=== PATIENT | female | born 1995 | race African-American/Black ===

== ENCOUNTER 2018-03-12 11:08 | Emergency (ER) | payer MEDICAID ==
[~2018-03-12] VITALS: Ht 170.2 cm; Wt 125.2 kg
[~2018-03-12 11:08] MED LIST: ACYCLOVIR 400400 MG PO; EXCEDRIN CAPLE1 EACH; IBUPROFEN 800800 MG PO; MACROBID 100 M100 M1 PO; TRINATE TABLET1 TAB PO
[2018-03-12 11:30] LABS: URINE BILIRUBIN NEGATIVE (Negative); URINE BLOOD NEGATIVE (Negative); URINE CLARITY CLEAR; URINE COLOR YELLOW; URINE GLUCOSE-RANDOM* NEGATIVE (Negative); URINE KETONES NEGATIVE (Negative); URINE NITRITE-REFLEX NEGATIVE (Negative); URINE PROTEIN (DIPSTICK) NEGATIVE (Negative); URINE UROBILINOGEN 0.2 E.U./dl (0.2-1.0)
[2018-03-12 11:31] LABS: URINE LEUKOCYTES-REFLEX 1+ (Negative)
[2018-03-12 11:41] LABS: BACTERIA-REFLEX 1-9 Few /HPF (None Seen); CASTS None Seen /LPF (None Seen); SQUAMOUS >10 Many /LPF (0-3); URINE RBC None Seen /HPF (0-2); URINE WBC-REFLEX 0-5 Rare /HPF (0-5)
[2018-03-12 11:42] LABS: AMORPHOUS URATES Few /LPF (None Seen)
[2018-03-12 11:51] LABS: HEMATOCRIT 33.8 % (37.0-47.0); HEMOGLOBIN 11.4 gm/dL (12.0-15.0); MCH 27.3 pg (26.0-34.0); MCHC 33.7 g/dL (28.0-37.0); RBC 4.17 mil/uL (4.20-5.00); RDW 15.3 % (10.5-14.5); WBC 8.3 thou/uL (4.0-11.0)
[2018-03-12 11:53] LABS: CALCIUM 8.9 mg/dL (8.5-10.1); CREATININE 0.8 mg/dL (0.6-1.0); POTASSIUM 3.8 mmol/L (3.5-5.1)
[2018-03-12] MEDS ORDERED: REGLAN 5 MG TAB5 MG PO (12:23)
[2018-03-12] MEDS ORDERED: KEFLEX500 M1 PO (12:27)
[2018-03-12 12:37] VITALS: BP 131/78
== END 2018-03-12 12:48 | disposition home or self-care (01) ==
LOC: ER 11:08
PROVIDERS: Physician Assistant
DX: O23.42 Unspecified infection of urinary tract in pregnancy, second trimester (principal); R11.2 Nausea with vomiting, unspecified; R19.7 Diarrhea, unspecified; R51 Headache; Z98.890 Other specified postprocedural states; Z3A.20 20 weeks gestation of pregnancy

== ENCOUNTER 2020-08-15 19:36 | Emergency (ER) | payer MEDICAID ==
[~2020-08-15] VITALS: Ht 170.2 cm; Wt 145.2 kg
[~2020-08-15 19:36] MED LIST changes: +BIRTH CONTROLL IMPLA; +DIFLUCAN150 M1 PO; +KEFLEX500 M1 PO; +NORCO 5-325 TA1 EAC1 PO; +REGLAN 5 MG TAB5 MG PO
[2020-08-15 19:58] LABS: URINE BILIRUBIN NEGATIVE (Negative); URINE BLOOD NEGATIVE (Negative); URINE CLARITY CLEAR; URINE COLOR YELLOW; URINE GLUCOSE-RANDOM* NEGATIVE (Negative); URINE KETONES NEGATIVE (Negative); URINE LEUKOCYTES-REFLEX NEGATIVE (Negative); URINE NITRITE-REFLEX NEGATIVE (Negative); URINE PROTEIN (DIPSTICK) NEGATIVE (Negative); URINE SPECIFIC GRAVITY >= 1.030 (1.005-1.035); URINE UROBILINOGEN 0.2 E.U./dl (0.2-1.0)
[2020-08-15] MEDS ORDERED: ACYCLOVIR 800800 MG PO (21:00)
[2020-08-15 22:01] VITALS: BP 118/88
== END 2020-08-15 22:02 | disposition home or self-care (01) ==
LOC: ER 19:36
PROVIDERS: Nurse Practitioner
DX: A60.00 Herpesviral infection of urogenital system, unspecified (principal)